=== PATIENT | female | born 1975 | race Caucasian/White ===

== ENCOUNTER 2017-07-04 19:25 | Emergency (ER) | payer BC ==
[2017-07-04 19:35] VITALS: BP 126/81
--- NOTE | 2017-07-04 20:23 | UC ---
Complaint Female HPI - HPI Summary HPI Summary: Patient presents with an unremarkable past medial history. She presents with 1- 4 day onset complaints of malodous vaginal discharge, she describes it as thick white. She also reports dysuria at the end of urination and cannot clearly discern if the discomfort is vaginal or urethral. She denies any abdominal pain , back or flank pain, fever, chills, nausea or vomiting. Last menstrual cycle was three week ago. - History Of Current Complaint Chief Complaint: UCGU Stated Complaint: POSS UTI Time Seen by Provider: 07/04/17 19:50 Hx Obtained From: Patient Hx Last Menstrual Period: 06/12/17 ?: No Onset/Duration: Gradual Onset, Lasting Days Timing: Intermittent, Lasting Minutes Severity Initially: Mild Severity Currently: Mild Character: Burning Aggravating Factor(s): Urination Associated Signs And Symptoms: Positive: Vaginal Discharge - Risk Factors Ectopic Risk Factor: Negative - Allergies/Home Medications Allergies/Adverse Reactions: Allergies Allergy/AdvReac Type Severity Reaction Status Date / Time No Known Allergies Allergy Verified 07/04/17 19:35 Home Medications: Home Medications Generic Control 1 tab PO DAILY 07/04/17 [History] PMH/Surg Hx/FS Hx/Imm Hx Previously Healthy: Yes - Surgical History Surgical History: Yes Surgery Procedure, Year, and Place: 2007 surgery on feet/bunions - Family History Known Family History: Positive: None - Social History Alcohol Use: Occasionally Substance Use Type: None Smoking Status (MU): Never Smoked Tobacco - Immunization History Most Recent Influenza Vaccination: 04/22/15 Most Recent Tetanus Shot: 03/08/15 Most Recent Pneumonia Vaccination: not indicated Review of Systems Constitutional: Negative Skin: Negative Eyes: Negative ENT: Negative Respiratory: Negative Cardiovascular: Negative Gastrointestinal: Negative Genitourinary: Dysuria, Vaginal/Penile Discharge Motor: Negative Neurovascular: Negative Is Patient Immunocompromised?: No All Other Systems Reviewed And Are Negative: Yes Physical Exam Triage Information Reviewed: Yes Appearance: Well-Appearing Vital Signs: Initial Vital Signs Temp 99.2 F 07/04/17 19:30 Pulse 75 07/04/17 19:30 Resp 15 07/04/17 19:30 BP 126/81 07/04/17 19:30 Pulse Ox 100 07/04/17 19:30 Vital Signs Reviewed: Yes Eye Exam: Normal ENT Exam: Normal ENT: Positive: Pharynx normal Neck exam: Normal Neck: Positive: 1 Respiratory: Positive: Normal breath sounds, No respiratory distress, No accessory muscle use Cardiovascular: Positive: RRR, No Murmur Abdominal Exam: Normal Abdomen Description: Positive: Other: - vaginal exam;external genitalia without excoriations, hepetic lesion or rashes. internal exam reveal thick white discharge, with plague on vaginal wall and cervix, with foam discharge also noted. no cervical motion tenderness. Musculoskeletal Exam: Normal Skin Exam: Normal Complaint Female Dx - Course Course Of Treatment: Patient presents with vaginal discharge and a pelvic exam was peformed which reveal mixed clinical findings consistent with possible vagianl yeast and BV. Vaginal cultures were obtained and are pending/UA +Leuks. The patient was treated preumptively with diflucan and flagyl. I discussed my findings with her and she is in agreement with the dual treatment. She was discharged home in stable condition, and told to follow up with her PCP if her symptoms do not completely resolve. - Differential Dx/Diagnosis Differential Diagnosis/HQI/PQRI: Other - yeast infection bacterial vaginitis Provider Diagnoses: yeast infection. bacterial vaginitis Discharge - Discharge Plan Condition: Stable Disposition: HOME Prescriptions: Fluconazole 100 MG TAB* [Diflucan 100 MG TAB*] 100 mg PO DAILY #1 tab Metronidazole [Flagyl 500 MG TAB] 500 mg PO BID #14 tab Patient Education Materials: Bacterial Vaginosis (ED), Vulvovaginal Candidiasis (ED) Referrals: Gretchen Arenas MD [Primary Care Provider] - Additional Instructions: If your symptoms persist follow up with your PCP.
--- NOTE | 2017-07-05 20:47 | UC ---
- Progress Note Progress Note: neg GC/CH no change Ljj 07/05/2017 Course/Dx - Course Course Of Treatment: Patient presents with vaginal discharge and a pelvic exam was peformed which reveal mixed clinical findings consistent with possible vagianl yeast and BV. Vaginal cultures were obtained and are pending/UA +Leuks. The patient was treated preumptively with diflucan and flagyl. I discussed my findings with her and she is in agreement with the dual treatment. She was discharged home in stable condition, and told to follow up with her PCP if her symptoms do not completely resolve.
== END 2017-07-04 20:20 | disposition home or self-care (01) ==
LOC: UCEAST 19:25
DX: B37.3 Candidiasis of vulva and vagina (principal); N76.0 Acute vaginitis; B96.89 Other specified bacterial agents as the cause of diseases classified elsewhere
CPT/HCPCS: 81003; 81025; 87086; 87480; 87491; 87510; 87591; 87661; 99212; G0463

== ENCOUNTER 2017-10-25 17:05 | Emergency (ER) | payer BC ==
[2017-10-25 17:35] VITALS: BP 130/72
--- NOTE | 2017-10-25 17:42 | UC ---
Throat Pain/Nasal Iain HPI - HPI Summary HPI Summary: Patient is an otherwise healthy 42-year-old female presenting to the with chief complaint of nasal congestion, ear pressure, copious amount of mucous discharge from bilateral nares, headache, head pressure, mild cough without production and fatigue. She denies any abdominal pain, nausea, vomiting, diarrhea, constipation. Denies any sputum production with cough. Denies any fevers, sweats, chills. She states she has had extreme fatigue, but is also going through some emotional issues as her dad is in hospice. Denies any history of sinus infections. Symptoms have been present 12 days and she feels they have recently become worse. She is unable to sleep at night. Continues to eat and drink okay. - History of Current Complaint Chief Complaint: UCRespiratory Stated Complaint: Sinus congestion Time Seen by Provider: 10/25/17 17:25 Hx Obtained From: Patient Hx Last Menstrual Period: [id number] ?: No Severity: Moderate Pain Intensity: 6 Pain Scale Used: 0-10 Numeric Cough: Nonproductive Associated Signs & Symptoms: Positive: Sinus Discomfort, Nasal Discharge - copious - Epiglottits Risk Factors Epiglottis Risk Factors: Negative - Allergies/Home Medications Allergies/Adverse Reactions: Allergies Allergy/AdvReac Type Severity Reaction Status Date / Time No Known Allergies Allergy Verified 10/25/17 17:36 PMH/Surg Hx/FS Hx/Imm Hx Previously Healthy: Yes - Surgical History Surgical History: Yes Surgery Procedure, Year, and Place: 2007 surgery on feet/bunions - Family History Known Family History: Positive: None - Social History Occupation: Employed Full-time Lives: With Family Alcohol Use: Occasionally Substance Use Type: None Smoking Status (MU): Never Smoked Tobacco - Immunization History Most Recent Influenza Vaccination: 04/22/15 Most Recent Tetanus Shot: 03/08/15 Most Recent Pneumonia Vaccination: not indicated Review of Systems Constitutional: Negative Skin: Negative ENT: Dental Pain, Sore Throat, Nasal Discharge, Sinus Congestion, Sinus Pain/ Tenderness Respiratory: Negative Cardiovascular: Negative Motor: Negative Neurovascular: Negative Neurological: Negative Psychological: Negative Is Patient Immunocompromised?: No All Other Systems Reviewed And Are Negative: Yes Physical Exam Triage Information Reviewed: Yes Appearance: Well-Appearing, Well-Nourished Vital Signs: Initial Vital Signs Temp 97.9 F 10/25/17 17:22 Pulse 90 10/25/17 17:22 Resp 16 10/25/17 17:22 BP 130/72 10/25/17 17:22 Pulse Ox 100 10/25/17 17:22 Vital Signs Reviewed: Yes Eye Exam: Normal Eyes: Positive: Conjunctiva Clear ENT: Positive: Nasal congestion, Nasal drainage, Dental tenderness, Sinus tenderness. Negative: TM dull, TM red, Tonsillar swelling, Tonsillar exudate Neck exam: Normal Neck: Positive: Supple, No Lymphadenopathy Respiratory Exam: Normal Respiratory: Positive: Chest non-tender, Lungs clear Cardiovascular Exam: Normal Cardiovascular: Positive: RRR Musculoskeletal Exam: Normal Musculoskeletal: Positive: Strength Intact Neurological: Positive: Alert Psychological Exam: Normal Psychological: Positive: Normal Response To Family Skin Exam: Normal Throat Pain/Nasal Course/Dx - Course Course Of Treatment: During the course of treatment, the patient is evaluated for acute sinusitis. Symptoms have remained present 12 days. Lungs clear to auscultation bilaterally. She appears in no acute distress. Pain to the middle of the eyes were lysed the ethmoid sinuses. Pain to. Sinuses, but worsening pain to the ethmoid sinuses. Also endorses some dental pain. Endorses bilateral ear pressure, TMs clear and patent without erythema or bulging to suggest infection. Due to likeliness of ethmoid sinusitis, she is given Augmentin, Flonase, Sudafed. She is okay with this plan and discharged ritual follow back up with her PCP. - Differential Dx/Diagnosis Differential Diagnosis/HQI/PQRI: Sinusitis Provider Diagnoses: Sinusitis Discharge - Sign-Out/Discharge Documenting (check all that apply): Discharge - Discharge Plan Condition: Stable Disposition: HOME Prescriptions: Amoxicillin/Clavulanate TAB* [Augmentin TAB 875*] 875 mg PO BID #14 tab Fluticasone NASAL SPRAY 50MCG* [Flonase NASAL SPRAY 50MCG*] 2 spray BOTH NARES DAILY #1 btl Pseudoephedrine HCL ER TAB* [Sudafed 12 Hour*] 120 mg PO BID #10 tab.er Patient Education Materials: Sinusitis (ED) Referrals: Gretchen Arenas MD [Primary Care Provider] - Additional Instructions: Augmentin 875mg twice daily x 7 days Flonase once daily in each nare Sudafed as prescribed. - Billing Disposition and Condition Condition: STABLE Disposition: HOME
== END 2017-10-25 17:44 | disposition home or self-care (01) ==
LOC: UCEAST 17:05
DX: J32.9 Chronic sinusitis, unspecified (principal)
CPT/HCPCS: 99212; G0463

== ENCOUNTER 2018-08-17 16:36 | Emergency (ER) | payer BC ==
[2018-08-17 16:59] VITALS: BP 131/85
[2018-08-17 17:24] LABS: Influenza A Molecular NEGATIVE (Negative); Influenza B Molecular NEGATIVE (Negative)
--- NOTE | 2018-08-17 17:36 | UC ---
Respiratory Complaint HPI - HPI Summary HPI Summary: sore throat , body aches for 3-4 days, fevers 2 days ago--- - History of Current Complaint Chief Complaint: UCRespiratory Stated Complaint: SORE THROAT Time Seen by Provider: 08/17/18 16:58 Hx Obtained From: Patient Hx Last Menstrual Period: 2 wks ago ?: No Onset/Duration: Sudden Onset, Lasting Days - 3-4, Still Present, Resolved Timing: Constant Pain Intensity: 7 Pain Scale Used: 0-10 Numeric Alleviating Factors: OTC Meds Associated Signs And Symptoms: Positive: Dyspnea, Fever, URI - Allergies/Home Medications Allergies/Adverse Reactions: Allergies Allergy/AdvReac Type Severity Reaction Status Date / Time No Known Allergies Allergy Verified 08/17/18 16:59 PMH/Surg Hx/FS Hx/Imm Hx Previously Healthy: No Psychological History: Depression - Surgical History Surgical History: Yes Surgery Procedure, Year, and Place: 2007 surgery on feet/bunions - Family History Known Family History: Positive: None - Social History Occupation: Employed Full-time Lives: With Family Alcohol Use: Occasionally Substance Use Type: None Smoking Status (MU): Never Smoked Tobacco - Immunization History Most Recent Influenza Vaccination: 04/22/15 Most Recent Tetanus Shot: 03/08/15 Most Recent Pneumonia Vaccination: not indicated Review of Systems All Other Systems Reviewed And Are Negative: Yes Constitutional: Positive: Fever, Chills, Fatigue Skin: Positive: Negative Eyes: Positive: Negative ENT: Positive: Sore Throat, Nasal Discharge Respiratory: Positive: Cough Cardiovascular: Positive: Negative Gastrointestinal: Positive: Negative Genitourinary: Positive: Negative Motor: Positive: Negative Neurovascular: Positive: Negative Musculoskeletal: Positive: Arthralgia, Myalgia Neurological: Positive: Headache Psychological: Positive: Negative Is Patient Immunocompromised?: No Physical Exam Triage Information Reviewed: Yes Appearance: Well-Nourished, Ill-Appearing - mild, Pain Distress - mild Vital Signs: Initial Vital Signs Temp 98.2 F 08/17/18 16:57 Pulse 74 08/17/18 16:57 Resp 12 08/17/18 16:57 BP 131/85 08/17/18 16:57 Pulse Ox 100 08/17/18 16:57 Vital Signs Reviewed: Yes Eye Exam: Normal Eyes: Positive: Conjunctiva Clear ENT Exam: Normal ENT: Positive: Normal ENT inspection, Hearing grossly normal, TMs normal. Negative: Nasal congestion, Trismus, Muffled voice, Hoarse voice, Sinus tenderness, Uvula midline Dental Exam: Normal Neck exam: Normal Neck: Positive: Supple, Nontender Respiratory Exam: Normal Respiratory: Positive: Chest non-tender, Lungs clear, Normal breath sounds, No respiratory distress, No accessory muscle use Cardiovascular Exam: Normal Cardiovascular: Positive: RRR, No Murmur, Pulses Normal, Brisk Capillary Refill Musculoskeletal Exam: Normal Musculoskeletal: Positive: Strength Intact, ROM Intact, No Edema Neurological Exam: Normal Neurological: Positive: Alert, Muscle Tone Normal Psychological Exam: Normal Skin Exam: Normal UC Diagnostic Evaluation - Laboratory O2 Sat by Pulse Oximetry: 100 Diagnostic Studies Comment: influenza and strep (-) Respiratory Course/Dx - Course Course Of Treatment: rest increase fluids, tylenol/ibuprofen for pain follow with pcp prn - Differential Dx/Diagnosis Provider Diagnosis: Viral illness, Febrile illness, acute Discharge - Sign-Out/Discharge Documenting (check all that apply): Patient Departure All imaging exams completed and their final reports reviewed: No Studies - Discharge Plan Condition: Stable Disposition: HOME Patient Education Materials: Upper Respiratory Infection (ED), Viral Syndrome ( ED) Referrals: Gretchen Arenas MD [Primary Care Provider] - If Needed - Billing Disposition and Condition Condition: STABLE Disposition: Home
== END 2018-08-17 18:03 | disposition home or self-care (01) ==
LOC: UCEAST 16:36
DX: B34.9 Viral infection, unspecified (principal); R50.9 Fever, unspecified; R06.00 Dyspnea, unspecified
CPT/HCPCS: 87651; 99211; G0463

== ENCOUNTER 2018-08-21 19:20 | Emergency (ER) | payer BC ==
[2018-08-21 19:28] VITALS: BP 130/78
[2018-08-21] MEDS ORDERED: Amoxicillin PO (*) 500 MG CAP PO ONE (21:05)
--- NOTE | 2018-08-21 21:05 | UC ---
Respiratory Complaint HPI - HPI Summary HPI Summary: The patient is a 43-year-old female with > 1 week hx nasal congestion and post nasal dri[ Sore throat and cough strep and flu tests neg about 5 days ago now with severe facial pressure and pain upper teeth and husam sensitive - History of Current Complaint Chief Complaint: UCRespiratory Stated Complaint: RESP COMPLAINT Time Seen by Provider: 08/21/18 20:42 Hx Obtained From: Patient Hx Last Menstrual Period: 3 weeks ago Onset/Duration: Gradual Onset, Lasting Days Timing: Constant Severity Initially: Mild Severity Currently: Moderate Pain Intensity: 7 Pain Scale Used: 0-10 Numeric Character: Cough: Nonproductive - Allergies/Home Medications Allergies/Adverse Reactions: Allergies Allergy/AdvReac Type Severity Reaction Status Date / Time No Known Allergies Allergy Verified 08/21/18 19:28 Home Medications: Home Medications Pseudoephedrine HCl [Sudafed] 30 mg PO ONCE PRN 08/21/18 [History Confirmed ] PMH/Surg Hx/FS Hx/Imm Hx Previously Healthy: Yes - Surgical History Surgical History: Yes Surgery Procedure, Year, and Place: 2007 surgery on feet/bunions - Family History Known Family History: Positive: Hypertension Negative: Cardiac Disease, Diabetes - Social History Alcohol Use: Occasionally Substance Use Type: None Smoking Status (MU): Never Smoked Tobacco - Immunization History Most Recent Influenza Vaccination: 04/22/15 Most Recent Tetanus Shot: 03/08/15 Most Recent Pneumonia Vaccination: not indicated Review of Systems All Other Systems Reviewed And Are Negative: Yes Constitutional: Positive: Negative Skin: Positive: Negative Eyes: Positive: Negative ENT: Positive: Sore Throat, Nasal Discharge, Sinus Congestion, Sinus Pain/ Tenderness Respiratory: Positive: Cough Cardiovascular: Positive: Negative Gastrointestinal: Positive: Negative Genitourinary: Positive: Negative Motor: Positive: Negative Neurovascular: Positive: Negative Musculoskeletal: Positive: Negative Neurological: Positive: Negative Psychological: Positive: Negative Physical Exam Triage Information Reviewed: Yes Appearance: Well-Appearing, No Pain Distress, Well-Nourished Vital Signs: Initial Vital Signs Temp 99.2 F 08/21/18 19:24 Pulse 82 08/21/18 19:24 Resp 20 08/21/18 19:24 BP 130/78 08/21/18 19:24 Pulse Ox 100 08/21/18 19:24 Vital Signs Reviewed: Yes Eyes: Positive: Conjunctiva Clear ENT: Positive: Hearing grossly normal, Nasal congestion, Nasal drainage, Sinus tenderness, Uvula midline Neck: Positive: Supple, Nontender, No Lymphadenopathy Respiratory: Positive: Lungs clear, Normal breath sounds, No respiratory distress, No accessory muscle use Cardiovascular: Positive: RRR, No Murmur Musculoskeletal: Positive: ROM Intact, No Edema Neurological: Positive: Alert Psychological Exam: Normal Skin Exam: Normal UC Diagnostic Evaluation - Laboratory O2 Sat by Pulse Oximetry: 100 - darlene/not hypoxic Respiratory Course/Dx - Differential Dx/Diagnosis Provider Diagnosis: Sinusitis Discharge - Sign-Out/Discharge Documenting (check all that apply): Patient Departure All imaging exams completed and their final reports reviewed: No Studies - Discharge Plan Condition: Stable Disposition: HOME Prescriptions: Amoxicillin PO (*) [Amoxicillin 875 MG (*)] 875 mg PO BID #14 tab Fluticasone NASAL SPRAY 50MCG* [Flonase NASAL SPRAY 50MCG*] 2 spray BOTH NARES BID #1 btl Patient Education Materials: Sinusitis (ED) Referrals: Gretchen Arenas MD [Primary Care Provider] - Additional Instructions: warm compresses saline nasal spray 2 sprays each nostril 2x day use flonase about 4 minutes after the saline - Billing Disposition and Condition Condition: STABLE Disposition: Home
[2018-08-21] MEDS ORDERED: Amoxicillin PO (*) 250 MG CAP PO ONE (21:06)
== END 2018-08-21 21:20 | disposition home or self-care (01) ==
LOC: UCEAST 19:20
DX: J32.9 Chronic sinusitis, unspecified (principal)
CPT/HCPCS: 99212; A9270-GY; G0463

== ENCOUNTER 2018-12-19 09:22 | Emergency (ER) | payer BC, OTHER ==
[2018-12-19 09:29] VITALS: BP 117/66
--- NOTE | 2018-12-19 10:06 | UC ---
Complaint Female HPI - HPI Summary HPI Summary: Ms. Gardiner presents with 5 days of mild dysuria and suprapubic discomfort. She denies back pain, nausea or fevers. She has a history of urinary tract infections usually they are worse. - History Of Current Complaint Chief Complaint: UCGU Stated Complaint: URINARY COMPLAINT Time Seen by Provider: 12/19/18 09:55 Hx Obtained From: Patient Hx Last Menstrual Period: 11/25/18 ?: No Onset/Duration: Gradual Onset Timing: Constant Severity Initially: Mild Severity Currently: Moderate Pain Intensity: 6 Character: Burning Aggravating Factor(s): Urination Associated Signs And Symptoms: Positive: Negative - Allergies/Home Medications Allergies/Adverse Reactions: Allergies Allergy/AdvReac Type Severity Reaction Status Date / Time No Known Allergies Allergy Verified 12/19/18 09:29 PMH/Surg Hx/FS Hx/Imm Hx Previously Healthy: Yes - Surgical History Surgical History: Yes Surgery Procedure, Year, and Place: 2007 surgery on feet/bunions - Family History Known Family History: Positive: None, Hypertension Negative: Cardiac Disease, Diabetes - Social History Alcohol Use: Occasionally Substance Use Type: None Smoking Status (MU): Never Smoked Tobacco - Immunization History Most Recent Influenza Vaccination: 04/22/15 Most Recent Tetanus Shot: 03/08/15 Most Recent Pneumonia Vaccination: not indicated Review of Systems All Other Systems Reviewed And Are Negative: Yes Genitourinary: Positive: Dysuria, Hematuria Physical Exam - Summary Physical Exam Summary: She is nontoxic in appearance with stable vital signs. Triage Information Reviewed: Yes Appearance: Well-Appearing Vital Signs: Initial Vital Signs Temp 98.7 F 12/19/18 09:26 Pulse 95 12/19/18 09:26 Resp 20 12/19/18 09:26 BP 117/66 12/19/18 09:26 Pulse Ox 98 12/19/18 09:26 Vital Signs Reviewed: Yes Abdomen Description: Positive: Nontender Psychological Exam: Normal Complaint Female Dx - Course Course Of Treatment: UA was equivocal there were red blood cells and leukocyte esterase and I will treat for urinary tract infection. She knows that if she does not improve she will need to follow-up - Differential Dx/Diagnosis Provider Diagnosis: UTI (urinary tract infection) Discharge - Sign-Out/Discharge Documenting (check all that apply): Patient Departure All imaging exams completed and their final reports reviewed: No Studies - Discharge Plan Condition: Stable Disposition: HOME Patient Education Materials: Urinary Tract Infection in Women (ED) Referrals: Gretchen Arenas MD [Primary Care Provider] - - Billing Disposition and Condition Condition: STABLE Disposition: Home
--- NOTE | 2018-12-20 15:43 | UC ---
- Progress Note Progress Note: The urine culture from 12/19/18 was no growth. The patient was put on nitrofurantoin. The nursing staff will call in if she is improved she may continue the antibiotic and if there is no change she may discontinue then follow-up with her primary care provider. Course/Dx - Diagnoses Provider Diagnoses: UTI (urinary tract infection) Discharge - Sign-Out/Discharge Documenting (check all that apply): Post-Discharge Follow Up All imaging exams completed and their final reports reviewed: No Studies - Discharge Plan Condition: Stable Disposition: HOME Prescriptions: Nitrofurantoin Macrocrystals* [Macrodantin 100 mg*] 100 mg PO BID #10 cap Phenazopyridine TAB* [Pyridium 100 mg TAB*] 100 mg PO TID #9 tab Patient Education Materials: Urinary Tract Infection in Women (ED) Referrals: Gretchen Arenas MD [Primary Care Provider] - - Billing Disposition and Condition Condition: STABLE Disposition: Home
== END 2018-12-19 10:09 | disposition home or self-care (01) ==
LOC: UCEAST 09:22
DX: N39.0 Urinary tract infection, site not specified (principal); Z87.440 Personal history of urinary (tract) infections
CPT/HCPCS: 81003; 84702; 87086; 99212; G0463